=== PATIENT | female | born 1985 | race Caucasian/White ===

== ENCOUNTER 2024-09-23 10:07 | Emergency (ER) | payer SELFPAY ==
[2024-09-23 10:09] VITALS: BP 132/84; PULSE 94; RESP 16; TEMP 36.8; O2SAT 100
== END 2024-09-23 12:04 | disposition left against medical advice (07) ==
LOC: ANHED 11:47
DX: S61.451A Open bite of right hand, initial encounter (principal); W54.0XXA Bitten by dog, initial encounter
CPT/HCPCS: 99199

== ENCOUNTER 2024-09-23 11:43 | Emergency (ER) | payer OTHER, SELFPAY ==
[2024-09-23 12:01] VITALS: BP 119/89; PULSE 86; RESP 16; TEMP 35.6; O2SAT 99
--- NOTE | 2024-09-23 13:21 | ED.ANIMALBIT ---
HPI - Animal Bite General Chief Complaint: Animal Bite Stated Complaint: Animal Bite Time Seen by Provider: 09/23/24 13:21 Source: patient, RN notes reviewed and old records reviewed Mode of arrival: ambulatory Limitations: no limitations History of Present Illness HPI narrative: Patient presents with complaints of single puncture wound to dorsal right hand. She reports injury happened while she was at work at about 10:00 a.m. when a fully vaccinated dog bit her.. Patient has full range of motion to the affected hand. She does report that the hand is sore. No active bleeding upon presentation. Last tetanus was 2021. She denies other injury and trauma. She voices no other concerns or complaints Related Data Home Medications ?Medication ?Instructions ?Recorded ?Confirmed ?Last Taken ?Type atorvastatin 10 mg tablet 10 mg PO DAILY 10/27/22 Unknown History bupropion HCl 150 mg tablet,12 hr 150 mg PO DAILY 10/27/22 Unknown History sustained-release (Wellbutrin SR) sertraline 25 mg tablet (Zoloft) 25 mg PO DAILY 10/27/22 Unknown History Allergies Allergy/AdvReac Type Severity Reaction Status Date / Time No Known Allergies Allergy Verified 09/23/24 12:34 Review of Systems Review of Systems: All systems reviewed & are unremarkable except as noted in HPI and below Constitutional: Constitutional: Reports no additional constitutional complaints ENT: Reports system reviewed and no additional complaints, except as documented Cardiovascular: Cardiovascular: Reports no additional cardiovascular complaints Respiratory: Respiratory: Reports no additional respiratory complaints Gastrointestinal: Gastrointestinal: Reports no additional gastrointestinal complaints Musculoskeletal: Musculoskeletal: Reports no additional musculoskeletal complaints and Reports as per HPI [facility] Past Medical History Medical History Allergies Anxiety Family History Family History Other Alcoholism Asthma Depression Diabetes mellitus Heart disease History of cancer Social History Social History Smoking status: Never smoker Alcohol intake: current Substance use: never Substance use type: does not use Lack of Transportation: No Lack of Food: Never True Current Housing: I Have Housing Concerned About Future Housing: No Difficulty Paying Gas/Electric Bills: No Difficulty Paying for Meds: No Currently Unemployed: No Education: Associate Degree Difficulty w/ Childcare or Family Care: No Comments At the time of my signature, I reviewed and agree with the nursing past medical, surgical, social, and family history. There is no relevant family history pertinent to the patient complaint. Exam Const: General: cooperative, no acute distress, alert and awake Orientation/consciousness: oriented to person, oriented to place and oriented to time HENMT: Head: normal to inspection Resp: Effort & Inspection: normal respiratory effort and able to speak in complete sentences Auscultation: clear to auscultation bilaterally, no crackles, no rales, no rhonchi and no wheezes Cardio: Palpation: normal PMI Rate: regular rate Rhythm: regular rhythm Heart sounds: S1 normal heart sound present and S2 normal heart sound present Neuro: General: oriented to person, oriented to place and oriented to time Cranial nerves: Yes CN's II-XII intact bilaterally Extrem: Right upper extremity: full ROM and normal capillary refill; no edema Hand/finger images:  1. 0.5 cm puncture Psych: Appearance: grossly normal Thought process: Normal thought process present Insight: Good insight present (Psych) Judgement: Good judgement present (Psych) Course Course Level of Care: Express Care Visit Vital Signs Vital signs: Vital Signs Temperature 96.1 F L 09/23/24 12:01 Pulse Rate 86 09/23/24 12:01 Respiratory Rate 16 09/23/24 12:01 Blood Pressure 119/89 09/23/24 12:01 Pulse Oximetry 99 09/23/24 12:01 Oxygen Delivery Room Air 09/23/24 12:01 Temperature 96.1 F L 09/23/24 12:01 Pulse Rate 86 09/23/24 12:01 Respiratory Rate 16 09/23/24 12:01 Blood Pressure 119/89 09/23/24 12:01 Pulse Oximetry 99 09/23/24 12:01 Oxygen Delivery Room Air 09/23/24 12:01 Reviewed MDM - Animal Bite MDM Narrative Medical decision making narrative: 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 Full range of motion. Explained to patient why wound will not be sutured. She is in agreement. Start doxycycline. Tetanus up-to-date. Discharge instructions reviewed with patient, as well as provided in writing per nursing staff. The instructions also include specific and strict return/GO TO THE ER as well as f/u information. All questions have been answered, and the patient deny any further questions with discharge and discharge plan. Discharge instructions reviewed with patient, as well as provided in writing per nursing staff. The instructions also include specific and strict return/GO TO THE ER as well as f/u information. All questions have been answered, and the patient deny any further questions with discharge and discharge plan. Some parts of this dictation were generated by voice recognition software and may contain typographical and/or grammatical inaccuracies. Differential Diagnosis Differential diagnosis: Likely bite by animal, cat bite and dog bite Discharge Plan Discharge Clinical Impression: Bite by animal Patient Disposition: Home, Self-Care Condition: Stable Instructions: Antibiotic Form, Animal Bite (ED) Additional Instructions: Take medications as prescribed. Follow with primary care provider. Emergency department for new or worse symptoms Patient Language: Kyrgyz Prescriptions: New doxycycline hyclate 100 mg tablet 100 mg PO BID Qty: 14 0RF ibuprofen 800 mg tablet 800 mg PO TID PRN (Reason: pain) Qty: 30 0RF No Action atorvastatin 10 mg tablet 10 mg PO DAILY sertraline [Zoloft] 25 mg tablet 25 mg PO DAILY bupropion HCl [Wellbutrin SR] 150 mg tablet sustained-release 12 hr 150 mg PO DAILY Follow-up/Referrals: Mark,Bennie Camargo APRN [Primary Care Provider] - 2 Weeks Stand Alone Forms: Work/School Release IP Time of Disposition: 13:29
== END 2024-09-23 13:40 | disposition home or self-care (01) ==
PROVIDERS: Emergency Provider Nurse Practitioner Family; PCP Nurse Practitioner Family
DX: S60.571A Other superficial bite of hand of right hand, initial encounter (principal); W54.0XXA Bitten by dog, initial encounter; Y99.0 Civilian activity done for income or pay; F41.9 Anxiety disorder, unspecified
CPT/HCPCS: 99203; G0463